=== PATIENT | male | born 1980 | race Caucasian/White ===

== ENCOUNTER 2017-05-28 21:14 | Observation (INO) | payer OTHER ==
[~2017-05-28] VITALS: Ht 182.9 cm; Wt 78.6 kg
[~2017-05-28 21:14] MED LIST: Bactrim Ds Tab1 EACH PO; Benadryl 50 mg50 MG PO; CEPH500 PO; DIPH50 PO; Epitol200 MG; FLUO10 PO; LORA2 PO; Prozac40 MG PO; QUET200 PO; QUET300 PO; TOPI25
[2017-05-28 22:03] LABS: BASOPHILS ABSOLUTE AUTO 0.04 K/mm3 (0.00-0.23); BASOPHILS PERCENT AUTO 1 % (0-2); EOSINOPHILS ABSOLUTE AUTO 0.27 K/mm3 (0.00-0.68); EOSINOPHILS PERCENT AUTO 3 % (0-6); Hematocrit 46.2 % (37.0-53.0); Hemoglobin 16.1 g/dL (13.5-17.5); IMMATURE GRAN ABSOLUTE AUTO 0.02 K/mm3 (0.00-0.10); IMMATURE GRAN PERCENT AUTO 0 % (0-1); LYMPHOCYTES ABSOLUTE AUTO 0.62 K/mm3 (0.84-5.20); LYMPHOCYTES PERCENT AUTO 8 % (21-46); MONOCYTES ABSOLUTE AUTO 0.39 K/mm3 (0.16-1.47); MONOCYTES PERCENT AUTO 5 % (4-13); Mean Corpuscular HGB 31.8 pg (26.0-34.0); Mean Corpuscular HGB Conc 34.8 g/dL (31.5-36.5); Mean Corpuscular Volume 91 fL (80-100); Mean Platelet Volume 9.2 fL (9.1-12.4); NEUTROPHILS ABSOLUTE AUTO 6.79 K/mm3 (1.96-9.15); NEUTROPHILS PERCENT AUTO 84 % (41-73); Platelet Count 293 K/mm3 (150-400); RDW Coefficient Variation 12.9 % (11.7-14.2); RDW Standard Deviation 42.9 fL (35.1-46.3); Red Blood Cell Count 5.07 M/mm3 (4.30-5.90); White Blood Cell Count 8.13 K/mm3 (4.00-11.30)
[2017-05-28 22:26] LABS: Alanine Aminotransfer (ALT/SGP 101 U/L (12-78); Albumin, Blood 3.8 g/dL (3.4-5.0); Albumin/Globulin Ratio 1.1 (0.8-1.8); Alk Phos 116 U/L (50-136); Anion Gap 10 mmol/L (6-16); Aspartate Aminotrans (AST/SGOT 79 U/L (12-37); Bilirubin, Total 0.5 mg/dL (0.1-1.0); Blood Urea Nitrogen 17 mg/dL (8-24); Bun/Creatinine Ratio 21.3 (12.0-20.0); CO2, Blood 22 mmol/L (21-32); Calcium, Blood 8.7 mg/dL (8.5-10.1); Chloride, Blood 104 mmol/L (98-108); Ethanol (Alcohol), Blood, Med <3 mg/dL; Globulin, Blood 3.6 g/dL (2.2-4.0); Glomerular Filtration Rate >60 (60-); Glucose, Blood 115 mg/dL (70-99); Salicylate 2.3 mg/dL (2.8-20.0); Sodium, Blood 136 mmol/L (136-145); Thyroxine (T4) 7.2 ug/dL (4.5-12.1); Total Protein, Blood 7.4 g/dL (6.4-8.2)
[2017-05-28 22:29] LABS: Thyroid Stimulating Hormone 0.488 uIU/mL (0.360-4.800)
[2017-05-28 22:32] LABS: Acetaminophen, Random <2.0 ug/mL (10.0-30.0)
[2017-05-29 05:45] LABS: BASOPHILS ABSOLUTE AUTO 0.04 K/mm3 (0.00-0.23); BASOPHILS PERCENT AUTO 1 % (0-2); EOSINOPHILS PERCENT AUTO 5 % (0-6); Hematocrit 43.8 % (37.0-53.0); Hemoglobin 15.3 g/dL (13.5-17.5); IMMATURE GRAN ABSOLUTE AUTO 0.02 K/mm3 (0.00-0.10); IMMATURE GRAN PERCENT AUTO 0 % (0-1); LYMPHOCYTES ABSOLUTE AUTO 0.55 K/mm3 (0.84-5.20); LYMPHOCYTES PERCENT AUTO 9 % (21-46); MONOCYTES ABSOLUTE AUTO 0.46 K/mm3 (0.16-1.47); MONOCYTES PERCENT AUTO 7 % (4-13); Mean Corpuscular HGB 31.8 pg (26.0-34.0); Mean Corpuscular HGB Conc 34.9 g/dL (31.5-36.5); Mean Corpuscular Volume 91 fL (80-100); Mean Platelet Volume 9.8 fL (9.1-12.4); NEUTROPHILS ABSOLUTE AUTO 5.06 K/mm3 (1.96-9.15); NEUTROPHILS PERCENT AUTO 79 % (41-73); Platelet Count 245 K/mm3 (150-400); RDW Coefficient Variation 12.6 % (11.7-14.2); Red Blood Cell Count 4.81 M/mm3 (4.30-5.90); White Blood Cell Count 6.43 K/mm3 (4.00-11.30)
[2017-05-29 06:17] LABS: Alanine Aminotransfer (ALT/SGP 182 U/L (12-78); Albumin, Blood 3.3 g/dL (3.4-5.0); Alk Phos 109 U/L (50-136); Anion Gap 9 mmol/L (6-16); Aspartate Aminotrans (AST/SGOT 161 U/L (12-37); Bilirubin, Total 0.9 mg/dL (0.1-1.0); Blood Urea Nitrogen 12 mg/dL (8-24); Bun/Creatinine Ratio 15.7 (12.0-20.0); CO2, Blood 23 mmol/L (21-32); Calcium, Blood 8.2 mg/dL (8.5-10.1); Chloride, Blood 101 mmol/L (98-108); Creatinine, Blood 0.76 mg/dL (0.60-1.20); Globulin, Blood 3.3 g/dL (2.2-4.0); Glomerular Filtration Rate >60 (60-); Glucose, Blood 93 mg/dL (70-99); Potassium, Blood 3.7 mmol/L (3.5-5.5); Sodium, Blood 133 mmol/L (136-145); Total Protein, Blood 6.6 g/dL (6.4-8.2)
[2017-05-29 12:25] LABS: Source, Urine Clean Catch
[2017-05-29 12:34] LABS: Bilirubin, Urine Neg (Neg); Blood, Urine Neg (Neg); Glucose Qualitative, Urine Neg (Neg); Ketones, Urine 1+ (Neg); Leukocyte Esterase, Urine 1+ (Neg); Nitrite, Urine Neg (Neg); Protein, Urine 2+ (Neg); Urobilinogen, Urine 1+ (Normal)
[2017-05-29 12:47] LABS: Appearance, Urine Clear (Clear); Color, Urine Yellow (P-Yellow)
[2017-05-29 12:49] LABS: Bacteria Not Seen /hpf; Red Blood Cells, Urine Not Seen /hpf (0-2); Squamous Epithelial Cells Not Seen /hpf (Few); White Blood Cells, Urine 0-2 /hpf (0-5)
[2017-05-29 12:50] LABS: Mucus Light (0-Heavy)
[2017-05-29 13:04] LABS: U Amphetamine Screen DETECTED; U Barbituate Screen Not Detected; U Benzodiazapine Screen DETECTED; U Buprenorphine Screen Not Detected; U Cannabinoids Screen DETECTED; U Cocaine Screen Not Detected; U Methadone Screen Not Detected; U Methamphetamine Screen DETECTED; U Opiates Screen Not Detected; U Oxycodone Screen Not Detected; U Phencyclidine Screen Not Detected; U Propoxyphene Screen Not Detected
[2017-08-23] MEDS ORDERED: QUET100 PO (03:23)
[2017-08-23] MEDS ORDERED: Ultram50 MG PO (06:26)
== END 2017-05-29 18:56 | disposition home or self-care (01) ==
LOC: ER 21:14 → ICUW 21:15
PROVIDERS: Emergency Medicine; Internal Medicine
DX: R45.851 Suicidal ideations (principal); B86 Scabies; F20.9 Schizophrenia, unspecified; R44.3 Hallucinations, unspecified; F10.10 Alcohol abuse, uncomplicated; F15.10 Other stimulant abuse, uncomplicated; F17.210 Nicotine dependence, cigarettes, uncomplicated; Y90.0 Blood alcohol level of less than 20 mg/100 ml; Z79.899 Other long term (current) drug therapy; Z88.6 Allergy status to analgesic agent; Z88.2 Allergy status to sulfonamides; Z88.8 Allergy status to other drugs, medicaments and biological substances
CPT/HCPCS: 36415; 80053; 81001; 84436; 84443; 85025; 87086; 96372; 99285; G0378; G0480; J1650; Q3014

== ENCOUNTER 2017-12-01 04:04 | Observation (INO) | payer OTHER ==
[~2017-12-01] VITALS: Ht 182.9 cm; Wt 61.2 kg
[~2017-12-01 04:04] MED LIST changes: +QUET100 PO; +Ultram50 MG PO
[2017-12-01 04:54] LABS: BASOPHILS ABSOLUTE AUTO 0.03 K/mm3 (0.00-0.23); BASOPHILS PERCENT AUTO 0 % (0-2); EOSINOPHILS PERCENT AUTO 4 % (0-6); Hematocrit 37.8 % (37.0-53.0); IMMATURE GRAN ABSOLUTE AUTO 0.02 K/mm3 (0.00-0.10); IMMATURE GRAN PERCENT AUTO 0 % (0-1); LYMPHOCYTES ABSOLUTE AUTO 2.64 K/mm3 (0.84-5.20); LYMPHOCYTES PERCENT AUTO 34 % (21-46); MONOCYTES ABSOLUTE AUTO 0.53 K/mm3 (0.16-1.47); MONOCYTES PERCENT AUTO 7 % (4-13); Mean Corpuscular HGB 31.8 pg (26.0-34.0); Mean Corpuscular HGB Conc 34.4 g/dL (31.5-36.5); Mean Corpuscular Volume 92 fL (80-100); Mean Platelet Volume 9.1 fL (9.1-12.4); NEUTROPHILS ABSOLUTE AUTO 4.17 K/mm3 (1.96-9.15); NEUTROPHILS PERCENT AUTO 54 % (41-73); Platelet Count 269 K/mm3 (150-400); RDW Coefficient Variation 13.4 % (11.7-14.2); Red Blood Cell Count 4.09 M/mm3 (4.30-5.90); White Blood Cell Count 7.69 K/mm3 (4.00-11.30)
[2017-12-01 05:20] LABS: Alanine Aminotransfer (ALT/SGP 28 U/L (12-78); Albumin, Blood 3.3 g/dL (3.4-5.0); Alk Phos 100 U/L (50-136); Anion Gap 8 mmol/L (6-16); Aspartate Aminotrans (AST/SGOT 19 U/L (12-37); Bilirubin, Total 0.2 mg/dL (0.1-1.0); Blood Urea Nitrogen 16 mg/dL (8-24); Bun/Creatinine Ratio 22.6 (12.0-20.0); CO2, Blood 28 mmol/L (21-32); Calcium, Blood 8.1 mg/dL (8.5-10.1); Chloride, Blood 107 mmol/L (98-108); Creatinine, Blood 0.71 mg/dL (0.60-1.20); Ethanol (Alcohol), Blood, Med <3 mg/dL; Globulin, Blood 3.4 g/dL (2.2-4.0); Glomerular Filtration Rate >60 (60-); Glucose, Blood 104 mg/dL (70-99); Potassium, Blood 3.4 mmol/L (3.5-5.5); Salicylate 1.8 mg/dL (2.8-20.0); Sodium, Blood 143 mmol/L (136-145); Total Protein, Blood 6.7 g/dL (6.4-8.2)
[2017-12-01 05:50] LABS: Acetaminophen, Random <2.0 ug/mL (10.0-30.0)
[2017-12-01 12:13] LABS: Source, Urine Clean Catch
[2017-12-01 12:42] LABS: Appearance, Urine Clear (Clear); Bilirubin, Urine Neg (Neg); Blood, Urine Neg (Neg); Color, Urine Amber (P-Yellow); Glucose Qualitative, Urine Neg (Neg); Ketones, Urine Neg (Neg); Leukocyte Esterase, Urine 1+ (Neg); Nitrite, Urine Neg (Neg); Protein, Urine Neg (Neg); Urobilinogen, Urine NORM (Normal)
[2017-12-01 13:08] LABS: Bacteria Rare /hpf; Red Blood Cells, Urine 0-2 /hpf (0-2); Squamous Epithelial Cells Rare /hpf (Few)
[2017-12-01 13:26] LABS: U Amphetamine Screen DETECTED; U Barbituate Screen Not Detected; U Benzodiazapine Screen Not Detected; U Buprenorphine Screen Not Detected; U Cannabinoids Screen DETECTED; U Cocaine Screen Not Detected; U Methadone Screen Not Detected; U Methamphetamine Screen Not Detected; U Opiates Screen DETECTED; U Oxycodone Screen Not Detected; U Phencyclidine Screen Not Detected; U Propoxyphene Screen Not Detected
== END 2017-12-04 09:23 ==
LOC: ER 04:04 → EOR 04:05
PROVIDERS: Emergency Medicine
DX: R45.851 Suicidal ideations (principal); F32.89 Other specified depressive episodes; F11.10 Opioid abuse, uncomplicated; F15.10 Other stimulant abuse, uncomplicated; F20.0 Paranoid schizophrenia; F17.210 Nicotine dependence, cigarettes, uncomplicated; Z88.8 Allergy status to other drugs, medicaments and biological substances; Z88.6 Allergy status to analgesic agent; Z79.899 Other long term (current) drug therapy
CPT/HCPCS: 80053; 81001; 84443; 85025; 87086; 99285; G0378; G0480; Q3014

== ENCOUNTER 2018-05-19 21:03 | Emergency (ER) | payer OTHER ==
[~2018-05-19] VITALS: Ht 182.9 cm; Wt 74.8 kg
== END 2018-05-19 23:03 | disposition home or self-care (01) ==
LOC: ER 21:03
DX: F23 Brief psychotic disorder (principal); Z88.8 Allergy status to other drugs, medicaments and biological substances; Z88.1 Allergy status to other antibiotic agents; F17.210 Nicotine dependence, cigarettes, uncomplicated; F17.290 Nicotine dependence, other tobacco product, uncomplicated
CPT/HCPCS: 99284

== ENCOUNTER 2020-08-18 00:14 | Emergency (ER) | payer OTHER ==
[~2020-08-18] VITALS: Ht 182.9 cm; Wt 88.5 kg
[2020-08-18] MEDS ORDERED: KLONOPIN0.5 M2 PO (00:38)
[2020-08-18] MEDS ORDERED: Seroquel Xr50 MG PO (00:38)
== END 2020-08-18 00:39 | disposition home or self-care (01) ==
LOC: ER 00:14
DX: F15.10 Other stimulant abuse, uncomplicated (principal); R06.02 Shortness of breath; F17.210 Nicotine dependence, cigarettes, uncomplicated; Z86.16 Personal history of COVID-19; Z79.899 Other long term (current) drug therapy; Z88.6 Allergy status to analgesic agent; Z88.8 Allergy status to other drugs, medicaments and biological substances
CPT/HCPCS: 99283; A9270

== ENCOUNTER 2020-08-21 22:22 | Emergency (ER) | payer OTHER ==
[~2020-08-21] VITALS: Ht 182.9 cm; Wt 88.5 kg
[~2020-08-21 22:22] MED LIST changes: +KLONOPIN0.5 M2 PO; +Seroquel Xr50 MG PO
[2020-08-21] MEDS ORDERED: ALBU90OI INH (22:26)
== END 2020-08-21 22:50 | disposition home or self-care (01) ==
LOC: ER 22:22
DX: Z76.0 Encounter for issue of repeat prescription (principal); R06.02 Shortness of breath; J45.909 Unspecified asthma, uncomplicated; F17.210 Nicotine dependence, cigarettes, uncomplicated; Z86.16 Personal history of COVID-19; F25.9 Schizoaffective disorder, unspecified; Z88.6 Allergy status to analgesic agent; Z88.8 Allergy status to other drugs, medicaments and biological substances; Z79.899 Other long term (current) drug therapy
CPT/HCPCS: 99282